=== PATIENT | female | born 1945 | race Caucasian/White ===

== ENCOUNTER 2017-07-28 16:48 | Emergency (ER) | payer MEDICARE, OTHER ==
[~2017-07-28] VITALS: Ht 170.2 cm; Wt 62.1 kg
[~2017-07-28 16:48] MED LIST: ACE325 PO; ACTI1/05PT PO; ALE70 PO; ASCO-182 PO; AZIT-1 PO; BI EST PO; BIOT10004 PO; CA C1TAB92 PO; CALC500T76 PO; CHOL10005 PO; CYAN1TAB68 PO; DULO60CA51 PO; ERG400 PO; ESTR-25 PO; ESTR10TA4 VG; FISH OIL1 CAP PO; FLAX100030 PO; FLAX100041 PO; FOSAMAX; GAB100 PO; GABA-547 PO; GLUC-198 PO; GUAI120L3 PO; HYDR1CAP2 PO; IBU200 PO; LEVO75TA68 PO; LEVO75TA73 PO; LEVO88TA42 PO; LEVO88TA43 PO; LEVO88TA45 PO; META800T18 PO; MULT-1335 PO; OMEG100027 PO; PNEU0.5D3 IM; PRO100 PO; SIMV-42 PO; SIMV-44 PO; SIMV-54 PO; SYNTHROID IV; TRAZ-133 PO; TRAZ-156 PO; UBID100C48 PO; [UNRECOGNIZED DRUG - CODE] MC; [UNRECOGNIZED DRUG - CODE] TP
[2017-07-28 16:58] VITALS: BP 136/72
--- NOTE | 2017-07-28 17:03 | ER Report ---
History and Physical Time Seen By MD: 17:02 Hx. of Stated Complaint: PT WAS BIT BY FRIENDS DOG ON JUL 16. PT WORRIED ABOUT RABIES. HPI/ROS CHIEF COMPLAINT: Dog bite HISTORY OF PRESENT ILLNESS: 72-year-old female patient presents to emergency room with complaint of dog bite. Patient states this occurred 12 days ago. Patient states she became concerned as she has been having numbness and tingling to the left lower leg for the past 2 or 3 days. Patient states she's been looking on the Internet and states that is a sign of rabies infection. Patient states that her friend who owns the dog took the dog to the that today. Patient states that she is having tingling to the lower leg that's radiating proximally and distally to the bite. Patient states that her friend states that HIS been acting normally since the bite. She denies any issues with wound since then. Patient denies any fevers, chills, nausea, vomiting or diarrhea. Allergies: Coded Allergies: No Known Drug Allergies (Unverified , 07/28/17) Home Meds Active Scripts Amoxicillin/Pot Clav 875-125 Mg Tab (AUGMENTIN 875-125 TABLET) 1 Each Tablet, 1 TAB PO Q12H, #20 TAB Prov:MARCOJAMES LEAD INGOT MOLDER 07/28/17 Levothyroxine Sodium (LEVOTHYROXINE SODIUM) 88 Mcg Tablet, 88 MCG PO DIRECTED , #90 TAB 3 Refills Take 75 mcg 2 times a week, 88 mcg 5 times a week Prov:TAMMY LEAVITT MD 06/01/17 Levothyroxine Sodium (LEVOTHYROXINE SODIUM) 75 Mcg Tablet, 75 MCG PO DIRECTED , #90 TAB 3 Refills Five times a week, take 88 mcg and 2 times a week , take 75 mcg Prov:TAMMY LEAVITT MD 06/01/17 Simvastatin (SIMVASTATIN) 40 Mg Tablet, 1 TAB PO QODAY, #90 TAB 4 Refills Prov:TAMMY LEAVITT MD 03/10/17 [bi-est 0.5 mg cap] No Conflict Check, 1 CAP PO DAILY, #90 3 Refills Prov:TAMMY LEAVITT MD 11/17/16 Reported Medications Biotin (Biotin) 1,000 Mcg Tab.chew, 1 TAB PO QODAY 10/21/16 Cholecalciferol (Vitamin D3) (VITAMIN D3) 1,000 Unit Tablet, 2 TAB PO DAILY, TAB 10/21/16 Ascorbic Acid (VITAMIN C) 500 Mg Tablet, 1 TAB PO DAILY, TAB 10/21/16 Ubidecarenone (COQ-10) 100 Mg Capsule, 1 CAP PO QODAY, CAPSULE 10/21/16 Flaxseed Oil (FLAX SEED OIL) 1,000 Mg Capsule, 1 CAP PO DAILY, CAPSULE 10/21/16 Golden-3 Fatty Acids (FISH OIL CONCENTRATE) 1,000 Mg Capsule, 1 MG PO DAILY, CAPSULE 07/05/14 Ca Carb/D3/Argnin/Inos/Silicon (BONE DENSITY CALCIUM + D CPLT) 1 Each Tablet, 1 EACH PO DAILY 07/05/14 Discontinued Scripts Gabapentin (GABAPENTIN) 100 Mg Capsule, 1 CAP PO PRN Y for PAIN, #90 CAPSULE 1 Refill Prov:TAMMY LEAVITT MD 11/17/16 Trazodone Hcl (TRAZODONE HCL) 50 Mg Tablet, 1 TAB PO PRN, #90 TAB 1 Refill Prov:TAMMY LEAVITT MD 10/21/16 Past Medical/Surgical History Patient has a past medical history of cluster headaches, hyperlipidemia, pneumonia, diverticulosis, fractures, hypoglycemia, hypothyroidism, alcohol use. Patient has surgical history of facelift, tonsillectomy, appendectomy. Patient has a family medical history of cancer, CAD, diabetes. Reviewed Nurses Notes: Yes Hx Smoking: No Smoking Status: Never Smoker Hx Substance Use Disorder: No Hx Alcohol Use: Yes (OCC) Constitutional Vital Sign - Last 24 Hours 07/28/17 16:58 Temp 97.9 Pulse 79 Resp 16 B/P (MAP) 136/72 Pulse Ox 98 O2 Delivery Room Air Physical Exam General appearance: Alert no distress. Respiratory: Chest is non tender, lungs are clear to auscultation. Cardiac: Regular rate and rhythm. Skin: Patient has wound to the lateral side of the left lower leg, there is some bruising around it. There is no erythema, no swelling. DIFFERENTIAL DIAGNOSIS: After history and physical exam differential diagnosis was considered for dogbite, rabies exposure, infection. Medical Decision Making ED Course/Re-evaluation ED Course Patient was admitted to exam room, history and physical were obtained. Differential diagnoses were considered. On examination patient has a small wound which appears to be well-healed. There is no erythema, no swelling, no discharge. Patient is incredibly concerned about rabies. She states that she became more concerned when she is reading that there is some numbness and tingling this radiating from the bite. She denies any fevers, chills. With the timing of this being 12 days and the dog acting healthy. I do not believe that there is any need to treat for rabies. I discussed with patient. The dog was taken to the that today. With a normal evaluation I think the likelihood for rabies is practically zero. The patient thought about that. She did agree to go ahead and take antibiotics. She will follow-up in the next 3 days if there is any concerns about rabies exposure. Decision to Disposition Date: Jul 28, 2017 Decision to Disposition Time: 18:03 Depart Departure Latest Vital Signs Vital Signs Date Time Temp Pulse Resp B/P (MAP) Pulse Ox O2 Delivery O2 Flow Rate FiO2 07/28/17 16:58 97.9 79 16 136/72 98 Room Air Impression: Primary Impression: Dog bite Condition: Improved Disposition: HOME OR SELF-CARE Referrals: TAMMY LEAVITT MD (PCP) New Scripts Amoxicillin/Pot Clav 875-125 Mg Tab (AUGMENTIN 875-125 TABLET) 1 Each Tablet 1 TAB PO Q12H, #20 TAB Prov: JAMES LARA 07/28/17 Patient Instructions: Animal Bite (ED) Additional Instructions: Limit activity by pain. Get plenty of rest. I would anticipate that with the antibiotics that the numbness that you are feeling will go away. Take the antibiotics as directed. Talk with your friend to see what the vet said. Return to the ER if condition worsens or the dog is showing any signs of rabies infection; per the vet. Take Tylenol or Ibuprofen as needed for pain. Monitor for fevers, chills, body aches and be evaluated if those were to occur. Problem Qualifiers Primary Impression: Dog bite Encounter type: initial encounter Qualified Codes: W54.0XXA - Bitten by dog , initial encounter JAMES LARA Jul 28, 2017 17:03
[2017-07-28] MEDS ORDERED: AMOX-559 PO (18:01)
== END 2017-07-28 18:20 | disposition home or self-care (01) ==
LOC: ER 17:09
DX: R20.2 Paresthesia of skin (principal); W54.0XXA Bitten by dog, initial encounter
CPT/HCPCS: 99282

== ENCOUNTER → 2017-09-30 | Outpatient (CLI) | payer MEDICARE, OTHER ==
[~2017-09-30] MED LIST changes: +AMOX-559 PO; +SIMV-49 PO
--- NOTE | 2017-10-03 11:03 | RADIOLOGY IMAGING REPORT ---
[place] [facility] [place] NAME: BRAVO ADEN : [id number] MR: [id number] V: [id number] EXAM DATE: [id number] ORDERING PHYSICIAN: TAMMY LEAVITT TECHNOLOGIST: Andreina Lawrence PROCEDURE:BILATERAL DIGITAL SCREENING MAMMOGRAM WITH CAD ASSISTED INTERPRETATION & 3D TOMOSYNTHESIS COMPARISON:Prior mammograms 09/23/16, 09/12/15, 09/11/14, 09/06/13, 08/09/12, 07/12/11 INDICATIONS:screening FINDINGS: Extremely dense heterogeneous fibroglandular tissue is seen throughout the breasts. The parenchymal pattern has remained stable allowing for difference in mammographic technique & patient positioning. There is no evidence of malignant appearing mass, malignant appearing calcifications or other secondary sign of malignancy in either breast. DIAGNOSTIC CATEGORY 2--BENIGN FINDING. RECOMMENDATIONS: ROUTINE MAMMOGRAM AND CLINICAL EVALUATION. IMPRESSION: BIRADS 2: Benign finding No significant abnormality is seen Dictated by: Sadaf Moscoso M.D. on 09/30/2017 at 15:45 Transcribed by: IRENA on 09/30/2017 at 16:25 Approved by: Sadaf Moscoso M.D. on 10/03/2017 at 11:02 [facility]
== END ==
LOC: MAMO 03:05
PROVIDERS: ATTEND Emergency Medicine
DX: Z12.31 Encounter for screening mammogram for malignant neoplasm of breast (principal)
CPT/HCPCS: 77063; 77067

== ENCOUNTER 2017-12-05 14:30 | Outpatient (RCR) | payer MEDICARE, OTHER ==
--- NOTE | 2017-11-03 16:48 | PT INITIAL EVALUATION ---
MEDICAL DIAGNOSIS: neck pain TREATMENT DIAGNOSIS: same DATE OF ONSET: 11/03/01 SUBJECTIVE: Teena Moore presents to physical therapy with complaints of neck pain that continues to get worse over the last 15 years. She reports that she has not received any treatments for her neck pain over the years. She reports that the neck pain becomes worse with prolonged sitting, bending, and turning. She reports that her neck pain becomes better with improved posture and lying. She denies any dizziness, tinnitus, nausea, and difficulties swallowing. She denies any surgeries, accidents, unexplained weight lose, and night pain. Furthermore, she reports that no imaging has been performed on her neck to this date. She reports that she has been noticing B buttock numbness that is pretty much constant. Pain location is C4-C7 spinous process and facet joints and described as stiffness, sharp intense pain, achy. Pain scale is 5 on a ten point pain scale. REHAB PROBLEM LIST: Increased Pain Decreased ROM Decreased Strength Decreased Endurance Decreased Function Decreased ADL's PREVIOUS MEDICAL HISTORY: See EMR OCCUPATION: Retired OBJECTIVE: Posture: She demonstrated fair posture with minimal B rounded shoulders, increased thoracic kyphosis, and forward head. ROM: Trunk AROM: protrusion: NIL with muscular end feel. flexion: minimal restriction with painful end feel. retraction: minimal restriction with painful end feel. extension: NIL with muscular end feel. lateral flexion R: minimal restriction with muscular end feel. lateral flexion L: minimal restriction with painful end feel on R side. rotation R: moderate restriction with painful end feel on R side. rotation L: minimal restriction with painful end feel on R side. Palpation: C4-C7 spinous process and facet joints Sensation: Intact: C2-T2 Special Tests: Repeated RET: stretch during test and better following test. Repeated RET with extension: stretch during test and better following test. Repeated flexion: stretch during test and worse following test with decreased cervical AROM with increased pain. Mobility: Independent ASSESSMENT: Teena will benefit from skilled physical therapy addressing the listed impairments to improve function and QOL. Based on examination, her provisional classification is posterior derangement that demonstrated directional preference for extension based principles. Short Term Goals 2 weeks: Pt will demonstrate centralized neck pain to improve function and QOL. 4 weeks: Pt will demonstrate full cervical AROM in all directions with normalized end feels to improve function and QOL. 6 weeks: Pt will return to prior level of function with abolished cervical pain to improve function and QOL> Patient's Goals reduce cervical pain PLAN: Patient to be seen for Manual Therapy/STM/MET Strengthening/condition Range of Motion Spinal Stabilization Work Hardening/Cond Stretching Neuromuscular Re-ed Closed Chain Program Posture/Body mechanics Home Exercise Program Therapeutic Activities 2x/Week for 6 Weeks If you have any questions, comments, or concerns about this report or plan, please contact me at . Thank you, Dean Chu, PT, DPT MTDD
[2017-12-08] MEDS ORDERED: LEVO75TA73 PO (09:47)
[2017-12-21] MEDS ORDERED: ALBU8.5H IH (08:36)
== END 2017-12-05 18:00 | disposition home or self-care (01) ==
LOC: PT 14:30
PROVIDERS: ATTEND Family Medicine
DX: M54.2 Cervicalgia (principal); M62.838 Other muscle spasm
CPT/HCPCS: 97161

== ENCOUNTER → 2018-10-18 | Outpatient (CLI) | payer MEDICARE, OTHER ==
[~2018-10-18] MED LIST changes: +ALBU8.5H IH; -TRAZ-156 PO; +TRAZ50TA34 PO
--- NOTE | 2018-10-18 17:21 | RADIOLOGY IMAGING REPORT ---
FACILITY: [facility] PATIENT NAME: BRAVO ADEN : [id number] MR: [id number] V: [id number] EXAM DATE: [id number] ORDERING PHYSICIAN: LACHELLE ASHTON TECHNOLOGIST: Gisel Cabrera PROCEDURE:BILATERAL DIGITAL SCREENING MAMMOGRAM WITH CAD ASSISTED INTERPRETATION & 3D TOMOSYNTHESIS COMPARISON:Prior mammograms 09/30/2017 back to films from 08/09/2012. INDICATIONS:SCREENING FINDINGS: Extremely dense glandular tissue that limits sensivity. Stable appearing parenchymal breast pattern with no mass lesion, architectural distortions, or clustering of suspicious microcalcifications. Stable course and benign punctuate calcifications scattered in both breasts. DIAGNOSTIC CATEGORY 2--BENIGN FINDING. RECOMMENDATIONS: ROUTINE MAMMOGRAM AND CLINICAL EVALUATION IN 1 YR. IMPRESSION: BIRADS 2: Benign finding. Dictated by: Santo Hopkins M.D. on 10/18/2018 at 14:56 Transcribed by: IRENA on 10/18/2018 at 15:29 Approved by: Santo Hopkins M.D. on 10/18/2018 at 17:20 [facility]
== END ==
LOC: MAMO 00:49
PROVIDERS: ATTEND Family Medicine
DX: Z12.31 Encounter for screening mammogram for malignant neoplasm of breast (principal); R92.1 Mammographic calcification found on diagnostic imaging of breast
CPT/HCPCS: 77063; 77067